=== PATIENT | male | born 1975 | race Caucasian/White ===

== ENCOUNTER 2021-07-19 16:57 | Emergency (ER) | payer OTHER ==
[2021-07-19] MEDS ORDERED: CYCLOBENZAPRINE10 MG PO (18:11)
== END 2021-07-19 18:30 | disposition home or self-care (01) ==
LOC: ER1 16:57
DX: S16.1XXA Strain of muscle, fascia and tendon at neck level, initial encounter (principal); R07.89 Other chest pain; V49.40XA Driver injured in collision with unspecified motor vehicles in traffic accident, initial encounter; Y92.410 Unspecified street and highway as the place of occurrence of the external cause
CPT/HCPCS: 70450; 71101; 72125; 93005; 99284